=== PATIENT | male | born 1990 | race African-American/Black ===

== ENCOUNTER 2022-08-13 08:54 | Emergency (ER) | payer MEDICAID ==
[~2022-08-13] VITALS: Ht 185.4 cm; Wt 109.1 kg
[2022-08-13 08:59] VITALS: TEMP 98.8
[2022-08-13 09:02] VITALS: BP 113/100; PULSE 83; RESP 20
== END 2022-08-13 09:30 | disposition home or self-care (01) ==
LOC: EMS 08:54
DX: S66.919A Strain of unspecified muscle, fascia and tendon at wrist and hand level, unspecified hand, initial encounter (principal); S60.819A Abrasion of unspecified wrist, initial encounter; F12.90 Cannabis use, unspecified, uncomplicated; Z13.9 Encounter for screening, unspecified; X58.XXXA Exposure to other specified factors, initial encounter; Y93.89 Activity, other specified; Y92.89 Other specified places as the place of occurrence of the external cause; Y99.8 Other external cause status
CPT/HCPCS: 99283; Z7502